=== PATIENT | female | born 1990 | race Caucasian/White ===

== ENCOUNTER 2019-02-18 21:45 | Emergency (ER) | payer OTHER ==
[2019-02-18 21:51] VITALS: TEMP 98.2; BMI 19.8
--- NOTE | 2019-02-18 22:43 | PDOC ---
History of Present Illness - General Chief Complaint: Respiratory Stated Complaint: COLD SYMPTOMS Time Seen by Provider: 02/18/19 22:42 History Source: Patient Exam Limitations: No Limitations - History of Present Illness Initial Comments: 28 year old female with no PMH presented to ED for fever, body aches, sore throat, headache, cough since last night. Pt reported she last took Tylenol around 2100 tonight, which improved her fever. She reported she is traveling soon and would like to know if she has the flu. She reported her cough is productive of yellow sputum. ROS General: admitted to fever, chills, generalized weakness, body aches. HEENT: admitted to sore throat. denied rhinorrhea, ear pain. Cardiovascular: denied chest pain, palpitations, syncope, diaphoresis. Respiratory: admitted to cough, sputum production. denied shortness of breath, hemoptysis. Gastrointestinal: admitted to nausea. denied abdominal pain, vomiting, diarrhea , constipation, blood in stool. Genitourinary: denied dysuria, increased urinary frequency, hematuria, urinary incontinence, flank pain. Back: denied back pain. Musculoskeletal: denied joint pain, muscle pain, joint swelling. Neurological: denied headache, dizziness, numbness, tingling, weakness. Integumentary: denied rash, laceration, abrasion. Hematologic/Lymphatic: denied bruising or bleeding. PE Constitutional: Well-nourished, Well-developed, appearing stated age. HEENT: head is normocephalic, atraumatic. EOMI. PERRLA. nasal congestion noted. no posterior pharyngeal erythema. no tonsillar swelling or exudates bilaterally. uvula midline. no peritonsillar swelling, tenderness or abscess. no jaw tenderness or misalignment. Neck: supple. Full ROM. Cardiovascular: regular heart rhythm. no murmurs. no pericardial friction rub. Respiratory: clear to auscultation bilaterally. no crackles, rhonchi or wheezing. no stridor. Gastrointestinal: soft, nontender. normal bowel sounds. no rebound, guarding, masses. Extremities: peripheral pulses intact. no lower extremity edema. Neurological: CN 2-12 grossly intact. moves all four extremities. Psych: awake, alert, oriented x3. follows commands. answers questions appropriately. Past History - Past Medical History Allergies/Adverse Reactions: Allergies Allergy/AdvReac Type Severity Reaction Status Date / Time No Known Allergies Allergy Verified 02/18/19 21:52 Home Medications: Ambulatory Orders NK [No Known Home Medication] 02/18/19 - Psycho Social/Smoking Cessation Hx Smoking History: Never smoked *Physical Exam - Vital Signs Last Vital Signs Temp Pulse Resp BP Pulse Ox 98.2 F 108 H 18 117/60 99 02/18/19 21:47 02/18/19 21:47 02/18/19 21:47 02/18/19 21:47 02/18/19 21:47 Medical Decision Making - Medical Decision Making 28 year old female with no PMH presented to ED complaining of body aches, headache, sore throat starting last night. Pt verbally requesting Influenza testing, reported she would take Tamiflu if positive. Initial Vital Signs Temp Pulse Resp BP Pulse Ox 98.2 F 108 H 18 117/60 99 02/18/19 21:47 02/18/19 21:47 02/18/19 21:47 02/18/19 21:47 02/18/19 21:47 Afebrile. Tachycardic. No tachypnea. No hypotension. No hypoxia on room air. Labs ordered: Influenza A/B rapid Medications ordered: Motrin 600 mg PO once Imaging ordered: none Pt given water jug for oral fluid hydration. 02/18/19 23:25 Laboratory Last Values Influenza A (Rapid) Negative (Negative) 02/18/19 22:00 Influenza B (Rapid) Negative (Negative) 02/18/19 22:00 Negative for influenza. Vital Signs Pulse Rate 74 02/18/19 23:28 Respiratory Rate 16 02/18/19 23:28 Blood Pressure 120/86 02/18/19 23:28 O2 Sat by Pulse Oximetry (%) 100 02/18/19 23:28 Tachycardia responded to oral fluid hydration. Pt informed of results and discharged. Pt given supportive therapy education. Discharge - Discharge Information Problems reviewed: Yes Clinical Impression/Diagnosis: Viral syndrome Condition: Improved Disposition: HOME - Admission No - Follow up/Referral - Patient Discharge Instructions Patient Printed Discharge Instructions: DI for Viral Syndrome Additional Instructions: Follow up with your primary care doctor within 3 days regarding your Emergency Room visit. Take Tylenol over the counter for pain/headache/fever. Take as advised on label. Take Ibuprofen over the counter for body aches/pain/fever. Take as advised on label. -Tylenol and Ibuprofen are not the same medication and can be safely taken together -Check the labels of any Multi-drug cold medications to see which medicines they contain Drink lots of fluids to stay hydrated. Return to the Emergency Department for increasing pain, chest pain, shortness of breath, fever>103F despite ibuprofen/tylenol use, fever>5 days, continuous vomiting or any other new, worsening or concerning symptoms. - Post Discharge Activity Work/Back to School Note: Back to Work
--- NOTE | 2019-02-18 22:44 | PDOC ---
Attending Attestation - Resident Resident Name: Shazia Ruvalcaba - ED Attending Attestation I have performed the following: I have examined & evaluated the patient, The case was reviewed & discussed with the resident, I agree w/resident's findings & plan - HPI HPI: 02/18/19 23:17 Pt comes with flu like sx and she wants to be tested for the flu. - Physicial Exam PE: 02/21/19 00:44 Agree with resident exam Vitals normal, except for tachycardia Afebrile Heart and lungs normal exam Abd soft Nt ND No flank pain Pt has no edema of legs No rash on body 02/21/19 00:45 - Medical Decision Making 02/21/19 00:45 Pt treated with motrin and her tachycardia resolved. Flu negative. Normal exam, so we will not pursue labs or CXR at this time. Pt appears well and she will be discharged home.
[2019-02-18] MEDS ORDERED: IBUPROFEN 600 MG TABLET (FP) PO ONE ×2 (22:52→22:56)
[2019-02-18 23:29] VITALS: BP 120/86; PULSE 74
== END 2019-02-18 23:36 | disposition home or self-care (01) ==
LOC: JERFT 21:45 → JER 21:45
DX: B34.9 Viral infection, unspecified (principal)
CPT/HCPCS: 87804; 99282-25